=== PATIENT | female | born 1940 | race Caucasian/White ===

== ENCOUNTER 2017-03-24 07:25 | Emergency (ER) | payer OTHER, BC ==
[~2017-03-24] VITALS: Ht 147.3 cm; Wt 58.1 kg
[2017-03-24] MEDS ORDERED: MEDROL DOSEPAK4 MG PO (07:42)
[2017-03-24 07:57] VITALS: BP 123/67
== END 2017-03-24 07:58 | disposition home or self-care (01) ==
LOC: EME 07:25
DX: T78.40XA Allergy, unspecified, initial encounter (principal); L50.0 Allergic urticaria; Z87.891 Personal history of nicotine dependence; Z91.048 Other nonmedicinal substance allergy status; Z88.5 Allergy status to narcotic agent
CPT/HCPCS: 99281; 99284